=== PATIENT | male | born 1975 | race African-American/Black ===

== ENCOUNTER 2017-05-15 21:14 | Observation (INO) | payer SELFPAY ==
[2017-05-15 22:59] LABS: Troponin I Less than 0.010 ng/mL (< 0.028)
--- NOTE | 2017-05-15 23:38 | PDOC.EVN ---
Event Note - Event Note Event Note: [id number] H&P DICTATED 1. Chest pain 2. Nicotine abuse 3. Alcohol abuse
[2017-05-16] MEDS ORDERED: Ondansetron ODT 4 MG TAB SL PRN (00:26)
[2017-05-16] MEDS ORDERED: Ondansetron HCl/PF 4 MG/2 ML Vial IVP PRN (00:26)
[2017-05-16 00:29] VITALS: BP 115/72; TEMP 98.7; BMI 29.5
[2017-05-16 02:27] LABS: Troponin I Less than 0.010 ng/mL (< 0.028)
[2017-05-16] MEDS ORDERED: Nitroglycerin 2% Ointment 1 INCH/1 GM Packet TOP SCH (06:00)
--- NOTE | 2017-05-16 06:39 | HP ---
DATE OF ADMISSION: 05/15/2017 CHIEF COMPLAINT: Chest pain, palpitations. HISTORY OF PRESENT ILLNESS: Patient is 42-year-old male with no significant past medical history, no w came today complaining of chest pain and palpitations. Patient states all of a sudden around 3 to 4 p.m., he started having palpitations associated with some chest tightness. Chest tightness is subs ternal, radiates towards the left side, spasm kind, moderate in intensity, currently 1/10. Denies a ny fever, denies any nausea, denies any vomiting, denies any dizziness, denies any cough, denies any sputum production. Symptoms persisted so he came to the ER; patient initially went to outside ER and patient was transferred here. PAST MEDICAL HISTORY: None. PAST SURGICAL HISTORY: None. ALLERGIES: No known drug allergies. MEDICATIONS: None. SOCIAL HISTORY: Positive for smoking, positive for alcohol, denies any drugs. FAMILY HISTORY: Denies any heart problems. REVIEW OF SYSTEMS: Constitutional: Denies any fever, denies any chills. Eyes: Denies any vision p roblems. Ears: Denies any hearing loss. Neck: Denies any neck phelps. Cardiovascular system: Posit agustina for chest pain. Positive for palpitations. Respiratory System: Denies any cough, denies any sp utum production. Gastrointestinal: Denies any nausea, vomiting. Musculoskeletal: Denies any joint deformities. Integumentary: Denies any rash. Cranial Nerve System: Denies syncope. Psychiatry: D enies any depression or anxiety. All other review of systems are reviewed and are negative: PHYSICAL EXAMINATION: CONSTITUTIONAL/VITAL SIGNS: At the time of H&P performed, blood pressure is 132/84, pulse ox 98%, re spiratory rate 18. GENERAL: Patient appears comfortable. HEENT: Pupils equal, round, and reactive to light. Anterior nares patent. Nose normal. Ears lázaro l. Teeth intact. Tongue is moist. NECK: Supple, no JVD. CARDIOVASCULAR SYSTEM: S1, S2 present. Regular rate and rhythm. No murmurs, no rubs, no gallops. RESPIRATORY SYSTEM: No wheezing, no rhonchi. Breath sounds present bilaterally. GASTROINTESTINAL: Abdomen is soft, nontender. No guarding, no organomegaly, no masses felt. INTEGUMENTARY AND INTEGUMENT: No rashes seen. PSYCHIATRIC: Mood appropriate at this time. LABORATORY DATA: At the time of H&P performed, troponin negative x2. BMP showed sodium 138, potassi um 3.5, chloride 109, CO2 of 25, BUN 11, creatinine 1.15. Lipase 27. UA: None. Drug screen, not d etected. White count of 6.7, hemoglobin 14.7, platelet count is 195. EKG, no acute ST changes per [facility] nurse practitioner. ASSESSMENT AND PLAN: The patient is 42-year-old male, 1. Chest pain, need to rule out cardiac etiology. Plan to check cardiac enzymes. Plan to monitor p atient closely. Plan to consult Cardiology to evaluate the patient. Plan to repeat EKG in a.m. 2. Pain, p.r.n. pain medications. 3. Alcohol abuse and alcohol usage and nicotine usage. Plan to start on thiamine, folic acid, and p .r.n. Ativan, and nicotine patch. Case was discussed in detail with the patient.
[2017-05-16] MEDS ORDERED: Carvedilol 3.125 MG TAB PO SCH (09:00)
[2017-05-16] MEDS ORDERED: Aspirin 325 MG TAB PO SCH (09:00)
== END 2017-05-16 02:33 | disposition left against medical advice (07) ==
LOC: ERS 21:14 → 2SW 22:38
PROVIDERS: ADMIT Internal Medicine; ATTEND Internal Medicine
DX: R07.2 Precordial pain (principal); R00.2 Palpitations; F10.10 Alcohol abuse, uncomplicated; F17.200 Nicotine dependence, unspecified, uncomplicated
CPT/HCPCS: 36415; 84484; 93005; G0378

== ENCOUNTER 2017-07-16 08:37 | Emergency (ER) | payer SELFPAY ==
[2017-07-16 09:02] LABS: #Lymphocytes 1.1 thou/uL (1.20-3.40); #Monocytes 0.5 thou/uL (0.11-0.59); #Neutrophils 3.3 thou/uL (1.40-6.50); %Basophils 0.7 % (0.0-1.0); %Eosinophils 0.5 % (0.0-10.0); %Lymphocytes 22.5 % (21.0-51.0); %Monocytes 9.4 % (0.0-10.0); %Neutrophils 66.9 % (42.0-75.0); Mean Corpuscular HGB CONC 34.2 g/dL (32.0-36.0); Mean Corpuscular Hemoglobin 29.7 pg (27.0-31.0); Mean Corpuscular Volume 86.9 fl (80.0-94.0); Mean Platelet Volume 9.1 fL (7.4-10.4); Platelet Count 178 thou/uL (130-400); RBC Distribution Width 11.8 % (11.5-14.5); Red Blood Cell (RBC) Count 4.36 mill/uL (4.70-6.10)
--- NOTE | 2017-07-16 09:16 | RAD ---
FRONTAL RADIOGRAPH OF CHEST: Date: 07/16/17 COMPARISON: 05/15/17. HISTORY: Chest pain. FINDINGS: Heart and mediastinal contours are within normal limits. No pneumothorax, pleural fluid, focal consol idation, or alveolar edema. IMPRESSION: No acute findings. POS: [facility]
[2017-07-16] MEDS ORDERED: Nitroglycerin 0.4 MG TAB (25 Tab Bottle) ONE (09:21)
[2017-07-16 09:28] LABS: ALT (SGPT) 21 U/L (8-55); AST (SGOT) 20 U/L (5-34); Alkaline Phosphatase 61 U/L (40-150); Anion Gap 10 mmol/L (10-20); BUN (Urea Nitrogen) 12 mg/dL (8.9-20.6); Bilirubin, Total 0.7 mg/dL (0.2-1.2); CK (CPK) 254 U/L (30-200); Calc. Creatinine Clearance 0 mL/min (70-130); Calcium 8.9 mg/dL (7.8-10.44); Carbon Dioxide 31 mmol/L (22-29); Chloride 103 mmol/L (98-107); Estimated GFR-MDRD 87; Globulin 2.7 g/dL (2.4-3.5); Glucose 101 mg/dL (70-105); Lipase 27 U/L (8-78); Potassium 4.2 mmol/L (3.5-5.1); Protein, Total 6.7 g/dL (6.0-8.3); Sodium 140 mmol/L (136-145)
[2017-07-16 09:31] LABS: CKMB 1.1 ng/mL (0-6.6); Troponin I Less than 0.010 ng/mL (< 0.028)
[2017-07-16] MEDS ORDERED: Ketorolac Tromethamine 30 MG/ML VIAL ONE (10:49)
[2017-07-16 13:29] LABS: Troponin I Less than 0.010 ng/mL (< 0.028)
== END 2017-07-16 13:43 | disposition home or self-care (01) ==
LOC: ERS 08:37
DX: R07.9 Chest pain, unspecified (principal); F17.210 Nicotine dependence, cigarettes, uncomplicated; Z79.899 Other long term (current) drug therapy
CPT/HCPCS: 36415; 71045; 80053; 82553; 83690; 84484; 85025; 93005; 94760; 96374; J1885

== ENCOUNTER 2017-10-25 00:05 | Emergency (ER) | payer SELFPAY ==
[2017-10-25 00:30] LABS: #Basophils 0.1 thou/uL (0.0-0.2); #Eosinphils 0.1 thou/uL (0.0-0.7); #Lymphocytes 1.9 thou/uL (1.20-3.40); #Monocytes 0.6 thou/uL (0.11-0.59); #Neutrophils 2.4 thou/uL (1.40-6.50); %Basophils 1.6 % (0.0-1.0); %Lymphocytes 37.9 % (21.0-51.0); %Monocytes 12.2 % (0.0-10.0); %Neutrophils 47.3 % (42.0-75.0); Hemoglobin 12.4 g/dL (14.0-18.0); Mean Corpuscular Hemoglobin 29.2 pg (27.0-31.0); Mean Corpuscular Volume 85.9 fl (80.0-94.0); Mean Platelet Volume 8.5 fL (7.4-10.4); Platelet Count 143 thou/uL (130-400); RBC Distribution Width 12.5 % (11.5-14.5); Red Blood Cell (RBC) Count 4.26 mill/uL (4.70-6.10); White Blood Cell (WBC) Count 5.1 thou/uL (4.8-10.8)
[2017-10-25 00:47] LABS: ALT (SGPT) 22 U/L (8-55); AST (SGOT) 26 U/L (5-34); Alkaline Phosphatase 62 U/L (40-150); Anion Gap 10 mmol/L (10-20); BUN (Urea Nitrogen) 16 mg/dL (8.9-20.6); Bilirubin, Total 0.6 mg/dL (0.2-1.2); Calc. Creatinine Clearance 0 mL/min (70-130); Carbon Dioxide 27 mmol/L (22-29); Chloride 107 mmol/L (98-107); Estimated GFR-MDRD Greater than 90; Globulin 2.6 g/dL (2.4-3.5); Glucose 88 mg/dL (70-105); Potassium 3.9 mmol/L (3.5-5.1); Protein, Total 6.6 g/dL (6.0-8.3); Sodium 140 mmol/L (136-145)
[2017-10-25 01:12] LABS: CKMB 4.7 ng/mL (0-6.6); Troponin I Less than 0.010 ng/mL (< 0.028)
--- NOTE | 2017-10-25 07:41 | RAD ---
PORTABLE CHEST 1 VIEW: Date: 10/25/17 Time: 0004 hours HISTORY: Chest pain. FINDINGS: Comparison made with exam of 07/30/17. The heart size is normal. No focal areas of consolidation, pneumothorax, or pleural effusions are see n. IMPRESSION: No acute process. POS: [facility]
== END 2017-10-25 02:49 | disposition home or self-care (01) ==
LOC: ERS 00:05
DX: R10.13 Epigastric pain (principal); F17.210 Nicotine dependence, cigarettes, uncomplicated; Z79.899 Other long term (current) drug therapy
CPT/HCPCS: 71045; 80053; 82553; 84484; 85025; 93005

== ENCOUNTER 2017-10-25 20:01 | Emergency (ER) | payer SELFPAY ==
[2017-10-25 21:11] LABS: #Basophils 0.1 thou/uL (0.0-0.2); #Eosinphils 0.1 thou/uL (0.0-0.7); #Lymphocytes 1.9 thou/uL (1.20-3.40); #Monocytes 0.6 thou/uL (0.11-0.59); #Neutrophils 3.1 thou/uL (1.40-6.50); %Basophils 0.9 % (0.0-1.0); %Eosinophils 1.5 % (0.0-10.0); %Lymphocytes 33.4 % (21.0-51.0); %Monocytes 10.1 % (0.0-10.0); %Neutrophils 54.1 % (42.0-75.0); Hemoglobin 12.4 g/dL (14.0-18.0); Mean Corpuscular HGB CONC 34.6 g/dL (32.0-36.0); Mean Corpuscular Hemoglobin 29.7 pg (27.0-31.0); Mean Corpuscular Volume 85.9 fl (80.0-94.0); Mean Platelet Volume 9.1 fL (7.4-10.4); Platelet Count 150 thou/uL (130-400); RBC Distribution Width 12.4 % (11.5-14.5); Red Blood Cell (RBC) Count 4.17 mill/uL (4.70-6.10); White Blood Cell (WBC) Count 5.7 thou/uL (4.8-10.8)
[2017-10-25 21:30] LABS: ALT (SGPT) 21 U/L (8-55); AST (SGOT) 26 U/L (5-34); Albumin 3.8 g/dL (3.5-5.0); Alkaline Phosphatase 68 U/L (40-150); Anion Gap 9 mmol/L (10-20); BUN (Urea Nitrogen) 13 mg/dL (8.9-20.6); Bilirubin, Total 0.6 mg/dL (0.2-1.2); CK (CPK) 308 U/L (30-200); Calc. Creatinine Clearance 0 mL/min (70-130); Calcium 8.7 mg/dL (7.8-10.44); Carbon Dioxide 29 mmol/L (22-29); Chloride 107 mmol/L (98-107); Estimated GFR-MDRD Greater than 90; Globulin 2.4 g/dL (2.4-3.5); Glucose 112 mg/dL (70-105); Potassium 3.6 mmol/L (3.5-5.1); Protein, Total 6.2 g/dL (6.0-8.3); Sodium 141 mmol/L (136-145)
[2017-10-25 21:33] LABS: CKMB 2.7 ng/mL (0-6.6); Troponin I Less than 0.010 ng/mL (< 0.028)
== END 2017-10-25 21:40 | disposition home or self-care (01) ==
LOC: ERS 20:01
DX: B35.3 Tinea pedis (principal); R10.13 Epigastric pain; F17.210 Nicotine dependence, cigarettes, uncomplicated
CPT/HCPCS: 36415; 83880; 93005

== ENCOUNTER 2017-10-30 18:53 | Emergency (ER) | payer SELFPAY ==
--- NOTE | 2017-10-30 21:58 | RAD ---
RIGHT FOOT TWO VIEWS: HISTORY: Right foot injury and pain. FINDINGS: The tarsals, metatarsals, and phalanges appear intact. No osseous abnormality identified. IMPRESSION: No acute abnormality identified. POS: [facility]
== END 2017-10-30 22:32 | disposition home or self-care (01) ==
LOC: ERS 18:53
DX: L03.115 Cellulitis of right lower limb (principal); B35.3 Tinea pedis; F17.210 Nicotine dependence, cigarettes, uncomplicated; Z71.6 Tobacco abuse counseling
CPT/HCPCS: 93005; 99406

== ENCOUNTER 2017-11-02 18:05 | Emergency (ER) | payer SELFPAY ==
[2017-11-02 18:55] LABS: #Basophils 0.1 thou/uL (0.0-0.2); #Eosinphils 0.1 thou/uL (0.0-0.7); #Monocytes 0.7 thou/uL (0.11-0.59); #Neutrophils 2.8 thou/uL (1.40-6.50); %Basophils 1.3 % (0.0-1.0); %Eosinophils 1.9 % (0.0-10.0); %Lymphocytes 35.3 % (21.0-51.0); %Monocytes 12.7 % (0.0-10.0); %Neutrophils 48.9 % (42.0-75.0); Hemoglobin 12.6 g/dL (14.0-18.0); Mean Corpuscular HGB CONC 34.9 g/dL (32.0-36.0); Mean Corpuscular Hemoglobin 29.7 pg (27.0-31.0); Mean Platelet Volume 8.8 fL (7.4-10.4); Platelet Count 146 thou/uL (130-400); RBC Distribution Width 12.6 % (11.5-14.5); Red Blood Cell (RBC) Count 4.26 mill/uL (4.70-6.10); White Blood Cell (WBC) Count 5.6 thou/uL (4.8-10.8)
[2017-11-02 19:17] LABS: ALT (SGPT) 25 U/L (8-55); AST (SGOT) 20 U/L (5-34); Albumin 3.7 g/dL (3.5-5.0); Alkaline Phosphatase 82 U/L (40-150); Anion Gap 10 mmol/L (10-20); BUN (Urea Nitrogen) 15 mg/dL (8.9-20.6); Bilirubin, Total 0.4 mg/dL (0.2-1.2); CK (CPK) 118 U/L (30-200); Calc. Creatinine Clearance 0 mL/min (70-130); Calcium 8.7 mg/dL (7.8-10.44); Carbon Dioxide 29 mmol/L (22-29); Chloride 104 mmol/L (98-107); Estimated GFR-MDRD Greater than 90; Globulin 2.3 g/dL (2.4-3.5); Glucose 70 mg/dL (70-105); Potassium 3.9 mmol/L (3.5-5.1); Sodium 139 mmol/L (136-145)
== END 2017-11-02 20:55 | disposition home or self-care (01) ==
LOC: ERS 18:05
DX: B35.3 Tinea pedis (principal); F17.210 Nicotine dependence, cigarettes, uncomplicated
CPT/HCPCS: 36415; 80053; 82550; 83880; 85025; 99283

== ENCOUNTER 2017-11-18 18:26 | Emergency (ER) | payer SELFPAY ==
[2017-11-18 19:16] LABS: #Basophils 0.1 thou/uL (0.0-0.2); #Eosinphils 0.1 thou/uL (0.0-0.7); #Lymphocytes 1.8 thou/uL (1.20-3.40); #Monocytes 0.6 thou/uL (0.11-0.59); %Basophils 1.1 % (0.0-1.0); %Eosinophils 2.3 % (0.0-10.0); %Lymphocytes 32.2 % (21.0-51.0); %Monocytes 11.3 % (0.0-10.0); Hemoglobin 13.6 g/dL (14.0-18.0); Mean Corpuscular HGB CONC 35.1 g/dL (32.0-36.0); Mean Corpuscular Hemoglobin 29.4 pg (27.0-31.0); Mean Corpuscular Volume 83.7 fL (78.0-98.0); Mean Platelet Volume 9.2 fL (7.4-10.4); Platelet Count 149 thou/uL (130-400); RBC Distribution Width 12.5 % (11.5-14.5); Red Blood Cell (RBC) Count 4.62 mill/uL (4.70-6.10); White Blood Cell (WBC) Count 5.6 thou/uL (4.8-10.8)
[2017-11-18 19:39] LABS: ALT (SGPT) 24 U/L (8-55); AST (SGOT) 25 U/L (5-34); Albumin 4.3 g/dL (3.5-5.0); Alkaline Phosphatase 61 U/L (40-150); Anion Gap 10 mmol/L (10-20); BUN (Urea Nitrogen) 19 mg/dL (8.9-20.6); Bilirubin, Total 0.8 mg/dL (0.2-1.2); Calc. Creatinine Clearance 0 mL/min (70-130); Calcium 8.9 mg/dL (7.8-10.44); Carbon Dioxide 28 mmol/L (22-29); Chloride 103 mmol/L (98-107); Estimated GFR-MDRD Greater than 90; Globulin 2.8 g/dL (2.4-3.5); Glucose 83 mg/dL (70-105); Lipase 31 U/L (8-78); Potassium 3.8 mmol/L (3.5-5.1); Protein, Total 7.1 g/dL (6.0-8.3); Sodium 137 mmol/L (136-145)
--- NOTE | 2017-11-18 20:29 | RAD ---
CHEST TWO VIEWS: 11/18/17 HISTORY: Lower chest pain. COMPARISON: 10/25/17 FINDINGS: Normal cardiac silhouette. The lungs and pleural spaces are clear. No pneumothorax or osseous abnorma lities. IMPRESSION: No acute cardiopulmonary process. POS: [facility]
[2017-11-18 20:55] LABS: CKMB 1.9 ng/mL (0-6.6); Troponin I Less than 0.010 ng/mL (< 0.028)
[2017-11-18 20:58] LABS: Bilirubin Negative (Negative); Blood, Urine Negative (Negative); Clarity CLEAR (Clear); Glucose, Urine (Dipstick) Negative (Negative); Leukocyte Negative (Negative); Nitrite Negative (Negative); Protein, Urine (Dipstick) Negative (Neg-Trace); Specific Gravity, Urine 1.029 (1.002-1.036)
[2017-11-18] MEDS ORDERED: Ketorolac Tromethamine 30 MG/ML VIAL ONE ×2 (21:08→21:12)
== END 2017-11-18 22:17 | disposition home or self-care (01) ==
LOC: ERS 18:26
DX: R07.89 Other chest pain (principal); F17.210 Nicotine dependence, cigarettes, uncomplicated
CPT/HCPCS: 36415; 71046; 80053; 81003; 82553; 83690; 84484; 85025; 93005; 96361; 96374; J1885

== ENCOUNTER 2017-11-30 23:47 | Emergency (ER) | payer SELFPAY ==
[2017-12-01 00:16] LABS: Bilirubin Small (Negative); Blood, Urine Negative (Negative); Clarity CLEAR (Clear); Glucose, Urine (Dipstick) Negative (Negative); Leukocyte Negative (Negative); Nitrite Negative (Negative); Protein, Urine (Dipstick) Negative (Neg-Trace); Specific Gravity, Urine 1.033 (1.002-1.036)
[2017-12-01 00:25] LABS: #Basophils 0.1 thou/uL (0.0-0.2); #Eosinphils 0.1 thou/uL (0.0-0.7); #Lymphocytes 2.8 thou/uL (1.20-3.40); #Monocytes 0.8 thou/uL (0.11-0.59); #Neutrophils 3.5 thou/uL (1.40-6.50); %Basophils 1.7 % (0.0-1.0); %Eosinophils 1.5 % (0.0-10.0); %Lymphocytes 38.2 % (21.0-51.0); %Monocytes 10.4 % (0.0-10.0); %Neutrophils 48.2 % (42.0-75.0); Hemoglobin 15.1 g/dL (14.0-18.0); Mean Corpuscular HGB CONC 36.2 g/dL (32.0-36.0); Mean Corpuscular Hemoglobin 30.6 pg (27.0-31.0); Mean Corpuscular Volume 84.4 fL (78.0-98.0); Mean Platelet Volume 9.5 fL (7.4-10.4); Platelet Count 156 thou/uL (130-400); RBC Distribution Width 12.9 % (11.5-14.5); Red Blood Cell (RBC) Count 4.94 mill/uL (4.70-6.10); White Blood Cell (WBC) Count 7.2 thou/uL (4.8-10.8)
[2017-12-01 00:28] LABS: Amphetamine Not Detected (NotDetected); Barbiturates Screen Not Detected (NotDetected); Benzodiazepine Screen Not Detected (NotDetected); Cocaine Metabolite Screen Not Detected (NotDetected); Medtox Control Line Valid? VALID (VALID); Medtox Reader # READER 1; Methadone Not Detected (NotDetected); Methamphetamine Detected (NotDetected); Opiate Screen Not Detected (NotDetected); Oxycodone Screen Not Detected (NotDetected); Phencyclidine (PCP) Not Detected (NotDetected); THC/Cannabinoid Screen Not Detected (NotDetected); Tricyclic Screen Not Detected (NotDetected)
== END 2017-12-01 00:38 | disposition home or self-care (01) ==
LOC: ERS 23:47
DX: Z00.8 Encounter for other general examination (principal); F17.210 Nicotine dependence, cigarettes, uncomplicated
CPT/HCPCS: 36415; 80306; 81003; 85025; 93005

== ENCOUNTER 2017-12-01 17:47 | Emergency (ER) | payer SELFPAY ==
[2017-12-01 18:46] LABS: ALT (SGPT) 20 U/L (8-55); AST (SGOT) 23 U/L (5-34); Albumin 4.2 g/dL (3.5-5.0); Alkaline Phosphatase 89 U/L (40-150); Anion Gap 11 mmol/L (10-20); BUN (Urea Nitrogen) 20 mg/dL (8.9-20.6); Bilirubin, Total 0.7 mg/dL (0.2-1.2); Calc. Creatinine Clearance 0 mL/min (70-130); Calcium 9.4 mg/dL (7.8-10.44); Carbon Dioxide 32 mmol/L (22-29); Chloride 103 mmol/L (98-107); Estimated GFR-MDRD 87; Globulin 2.7 g/dL (2.4-3.5); Glucose 84 mg/dL (70-105); Magnesium 2.1 mg/dL (1.6-2.6); Potassium 4.5 mmol/L (3.5-5.1); Protein, Total 6.9 g/dL (6.0-8.3); Sodium 141 mmol/L (136-145)
== END 2017-12-01 20:10 | disposition home or self-care (01) ==
LOC: ERS 17:47
DX: F22 Delusional disorders (principal); R20.2 Paresthesia of skin; F17.210 Nicotine dependence, cigarettes, uncomplicated
CPT/HCPCS: 36415; 80053; 83735; 99284

== ENCOUNTER 2017-12-16 00:07 | Emergency (ER) | payer SELFPAY | END 2017-12-16 07:00 | disposition home or self-care (01) | LOC: ERS 00:07 | DX: M79.671 Pain in right foot (principal); M79.672 Pain in left foot; F17.200 Nicotine dependence, unspecified, uncomplicated | CPT/HCPCS: 93005; 99283 ==

== ENCOUNTER 2017-12-16 23:22 | Emergency (ER) | payer SELFPAY | END 2017-12-17 00:11 | disposition home or self-care (01) | LOC: ERS 23:22 | DX: B35.3 Tinea pedis (principal); M79.671 Pain in right foot; M79.672 Pain in left foot; Z71.6 Tobacco abuse counseling; F17.210 Nicotine dependence, cigarettes, uncomplicated | CPT/HCPCS: 99406 ==

== ENCOUNTER 2018-09-01 23:21 | Emergency (ER) | payer SELFPAY ==
[2018-09-02] MEDS ORDERED: Ibuprofen 800 MG TAB ONE (02:57)
== END 2018-09-02 03:15 | disposition home or self-care (01) ==
LOC: ERS 23:21
DX: S46.912A Strain of unspecified muscle, fascia and tendon at shoulder and upper arm level, left arm, initial encounter (principal); F17.210 Nicotine dependence, cigarettes, uncomplicated; X50.0XXA Overexertion from strenuous movement or load, initial encounter
CPT/HCPCS: 99283

== ENCOUNTER 2018-09-03 17:14 | Emergency (ER) | payer SELFPAY | END 2018-09-03 18:24 | disposition home or self-care (01) | LOC: ERS 17:14 | DX: F10.10 Alcohol abuse, uncomplicated (principal); F17.210 Nicotine dependence, cigarettes, uncomplicated | CPT/HCPCS: 99283 ==

== ENCOUNTER 2019-05-01 00:42 | Emergency (ER) | payer SELFPAY ==
[2019-05-01 01:13] LABS: #Basophils 0.1 thou/uL (0.0-0.2); #Eosinphils 0.1 thou/uL (0.0-0.7); #Lymphocytes 2.5 thou/uL (1.20-3.40); #Monocytes 0.7 thou/uL (0.11-0.59); #Neutrophils 3.1 thou/uL (1.40-6.50); %Basophils 1.1 % (0.0-1.0); %Eosinophils 2.1 % (0.0-10.0); %Monocytes 10.2 % (0.0-10.0); %Neutrophils 47.6 % (42.0-75.0); Hemoglobin 14.2 g/dL (14.0-18.0); Mean Corpuscular HGB CONC 35.3 g/dL (32.0-36.0); Mean Corpuscular Hemoglobin 30.7 pg (27.0-31.0); Mean Corpuscular Volume 86.9 fL (78.0-98.0); Mean Platelet Volume 9.1 fL (7.4-10.4); Platelet Count 164 thou/uL (130-400); RBC Distribution Width 11.8 % (11.5-14.5); Red Blood Cell (RBC) Count 4.62 mill/uL (4.70-6.10); White Blood Cell (WBC) Count 6.5 thou/uL (4.8-10.8)
[2019-05-01 01:35] LABS: ALT (SGPT) 25 U/L (8-55); AST (SGOT) 25 U/L (5-34); Albumin 4.3 g/dL (3.5-5.0); Alkaline Phosphatase 71 U/L (40-110); Anion Gap 12 mmol/L (10-20); BUN (Urea Nitrogen) 17 mg/dL (8.9-20.6); Bilirubin, Total 0.6 mg/dL (0.2-1.2); Calc. Creatinine Clearance 0 mL/min (70-130); Calcium 9.3 mg/dL (7.8-10.44); Carbon Dioxide 29 mmol/L (22-29); Chloride 104 mmol/L (98-107); Estimated GFR-MDRD Greater than 90; Globulin 2.8 g/dL (2.4-3.5); Glucose 110 mg/dL (70-105); Lipase 48 U/L (8-78); Potassium 3.8 mmol/L (3.5-5.1); Protein, Total 7.1 g/dL (6.0-8.3); Sodium 141 mmol/L (136-145)
--- NOTE | 2019-05-01 09:28 | RAD ---
CHEST 1 VIEW: Date: 05/01/19 HISTORY: Cough and congestion, chest pain. COMPARISON: 11/18/17. FINDINGS: Heart size is normal. Lungs are clear. No confluent pneumonia, overt edema, or pleural effusion. IMPRESSION: No acute intrathoracic disease. POS: [facility]
== END 2019-05-01 01:57 | disposition home or self-care (01) ==
LOC: ERS 00:42
DX: R07.2 Precordial pain (principal); F17.210 Nicotine dependence, cigarettes, uncomplicated
CPT/HCPCS: 36415; 71045; 80053; 83690; 84484; 85025; 93005

== ENCOUNTER 2020-03-06 00:25 | Emergency (ER) | payer SELFPAY | END 2020-03-06 00:50 | disposition home or self-care (01) | LOC: ERS 00:25 | DX: M25.571 Pain in right ankle and joints of right foot (principal); F17.210 Nicotine dependence, cigarettes, uncomplicated | CPT/HCPCS: 99281 ==

== ENCOUNTER 2024-03-04 19:20 | Emergency (ER) | payer SELFPAY ==
[2024-03-04] MEDS ORDERED: Lidocaine 4% Patch ONE (21:19)
[2024-03-04] MEDS ORDERED: Ketorolac Tromethamine 30 MG (1 mL) VIAL ONE (21:19)
== END 2024-03-04 21:25 | disposition home or self-care (01) ==
LOC: ERS 19:20
DX: M54.50 Low back pain, unspecified (principal)
CPT/HCPCS: 72100; 72220; 96372; 99283; J1885

== ENCOUNTER 2024-03-20 17:26 | Observation (INO) | payer BC, SELFPAY ==
[2024-03-20] MEDS ORDERED: Acetaminophen 325 MG TAB ONE (18:47)
[2024-03-20] MEDS ORDERED: Ketorolac Tromethamine 30 MG (1 mL) VIAL ONE ×2 (18:47→18:48)
[2024-03-20] MEDS ORDERED: Ibuprofen 200 MG TAB ONE (19:12)
[2024-03-20 19:15] LABS: Bacteria/HPF None Seen HPF (None Seen); Bilirubin Negative (Negative); Blood, Urine Negative (Negative); CAUTI Indications for Culture Pelvic or flank pain; Clarity Clear (Clear); Glucose, Urine (Dipstick) Normal (Negative); Ketone, Urine Negative (Negative); Leukocyte Negative Leu/uL (Negative); Nitrite Negative (Negative); Protein, Urine (Dipstick) Negative (Neg-Trace); RBC/HPF 0-3 HPF (0-3); Specific Gravity, Urine 1.018 (1.002-1.036); Squamous Epithelial None Seen HPF (0-3); WBC/HPF 0-3 HPF (0-3)
[2024-03-20 19:19] LABS: Urine Culture Reflex No No
[2024-03-20] MEDS ORDERED: Ketorolac Tromethamine 30 MG (1 mL) VIAL IVP PRN (22:10)
[2024-03-20] MEDS ORDERED: Acetaminophen 325 MG TAB PO PRN (22:11)
[2024-03-20] MEDS ORDERED: Ondansetron ODT 4 MG TAB PO PRN (22:17)
[2024-03-20] MEDS ORDERED: Ondansetron PF 4 MG/2 ML Vial IVP PRN (22:17)
[2024-03-21 00:33] VITALS: BMI 31.1
[2024-03-21] MEDS: HYDROcodone/Acetaminophen 5/325 mg Tablet PO PRN (00:58)
[2024-03-21 06:00] LABS: #Basophils 0.03 10x3/uL (0.0-0.2); #Eosinophils Less than 0.03 10x3/uL (0.0-0.7); %Basophils 0.4 % (0.0-1.0); %Eosinophils 0.3 % (0.0-10.0); %Lymphocytes 33.5 % (21.0-51.0); %Monocytes 6.2 % (0.0-10.0); %Neutrophils 59.3 % (42.0-75.0); Hematocrit 33.3 % (42.0-52.0); Hemoglobin 11.3 g/dL (14.0-18.0); Mean Corpuscular HGB CONC 33.9 g/dL (32.0-36.0); Mean Corpuscular Hemoglobin 27.6 pg (27.0-31.0); Mean Corpuscular Volume 81.2 fL (78.0-98.0); Mean Platelet Volume 11.6 fL (7.4-10.4); Platelet Count 168 10x3/uL (130-400); RBC Distribution Width 13.1 % (11.5-14.5)
[2024-03-21 06:19] LABS: ALT (SGPT) 27 U/L (8-55); AST (SGOT) 21 U/L (5-34); Albumin 3.1 g/dL (3.5-5.0); Alkaline Phosphatase 50 U/L (40-110); Anion Gap 8 mmol/L (10-20); BUN (Urea Nitrogen) 13 mg/dL (8.9-20.6); Bilirubin, Total 0.4 mg/dL (0.2-1.2); Calc. Creatinine Clearance 116 mL/min (70-130); Calcium 8.3 mg/dL (7.8-10.44); Carbon Dioxide 29 mmol/L (22-29); Chloride 107 mmol/L (98-107); Estimated GFR 88; Globulin 2.5 g/dL (2.4-3.5); Glucose 114 mg/dL (70-105); Potassium 3.3 mmol/L (3.5-5.1); Protein, Total 5.6 g/dL (6.0-8.3); Sodium 141 mmol/L (136-145)
[2024-03-21] MEDS ORDERED: FLU (Fluarix Triv) TS24-25(6MOS UP)/PF 45 MCG/0.5 ML Syringe IM ONE (09:00)
[2024-03-21] MEDS: Potassium Chloride 20 MEQ TAB PO SCH (09:16)
[2024-03-22 05:08] VITALS: BP 115/70; TEMP 97.9
== END 2024-03-22 07:59 | disposition home or self-care (01) ==
LOC: ERS 17:26 → SURG B 22:26
PROVIDERS: ADMIT Student in an Organized Health Care Education/Training Program; ATTEND Internal Medicine
DX: M47.816 Spondylosis without myelopathy or radiculopathy, lumbar region (principal); E87.6 Hypokalemia; E66.811 Obesity, class 1; Z68.31 Body mass index [BMI] 31.0-31.9, adult
CPT/HCPCS: 36415; 80053; 81001; 85025; 99284; G0378; J1885